=== PATIENT | female | born 1985 ===

== ENCOUNTER 2023-03-11 09:06 | Inpatient (IN) | payer OTHER ==
[~2023-03-11] VITALS: Ht 154.9 cm; Wt 49.0 kg
[2023-03-12] MEDS ORDERED: IROSPAN 24/6 T1 EACH PO (10:44)
[2023-03-18] MEDS ORDERED: MEDROXYPRO150 MG/1 M (11:01)
== END 2023-03-20 11:52 | disposition home or self-care (01) | DRG 743 ==
LOC: O/R 03-18 07:15 → SURH 03-18 07:45 → OB/GYN 03-18 18:30
PROVIDERS: Obstetrics & Gynecology; ADMIT Obstetrics & Gynecology; ATTEND Obstetrics & Gynecology
PROC: 0UB90ZZ Excision of Uterus, Open Approach (ICD-10-PCS; principal; 2023-03-18 09:45)
DX: D25.9 Leiomyoma of uterus, unspecified (principal); Z20.822 Contact with and (suspected) exposure to COVID-19